=== PATIENT | female | born 1990 | race Caucasian/White ===

== ENCOUNTER 2019-04-22 14:06 | Emergency (ER) | payer SELFPAY ==
[2019-04-22 14:34] LABS: ABS Lymphocytes 1.3 10^3/ul (1.0-4.8); ABS Monocytes 0.3 10^3/ul (0-0.8); Eosinophil % 0.1 %; Hematocrit 43 % (35-47); Hemoglobin 14.6 g/dL (12.0-16.0); Lymphocyte % 22.4 %; Mean Corpuscular HGB Conc 34 g/dL (31-36); Mean Corpuscular Hemoglobin 32 pg (27-31); Mean Corpuscular Volume 95 fL (80-97); Mean Platelet Volume 7.5 fL (7.4-10.4); Nucleated Red Blood Cells % 0.1; Platelet Count 241 10^3/uL (150-450); Red Blood Count 4.53 10^6 /uL (3.70-4.87); Red Cell Distribution Width 13 % (10-15); White Blood Count 5.7 10^3/uL (3.5-10.8)
[2019-04-22 14:45] LABS: Urine Appearance Clear; Urine Bacteria Absent (Absent); Urine Bilirubin Negative (Negative); Urine Blood Negative (Negative); Urine Color Yellow; Urine Glucose Negative (Negative); Urine Ketones Negative (Negative); Urine Nitrite Negative (Negative); Urine Protein 1+(30 mg/dL) (Negative); Urine Red Blood Cell Trace(0-2/hpf) (Absent); Urine Specific Gravity 1.014 (1.010-1.030); Urine Squamous Epithelial Cell Present (Absent); Urine Urobilinogen Negative (Negative); Urine White Blood Cell Trace(0-5/hpf) (Absent)
[2019-04-22 14:56] LABS: Albumin 4.4 g/dL (3.2-5.2); Albumin/Globulin Ratio 1.5 (1-3); BUN/Creatinine Ratio 14.9 (8-20); Calcium 9.5 mg/dL (8.6-10.3); EGFR African American 113.1 (>60); EGFR Non-African American 93.5 (>60); Globulin 2.9 g/dL (2-4); Potassium 3.7 mmol/L (3.5-5.0); Total Bilirubin 0.5 mg/dL (0.2-1.0); Total Protein 7.3 g/dL (6.4-8.9)
--- NOTE | 2019-04-22 16:21 | ED ---
Back Pain - HPI Summary HPI Summary: Pt is a 28 y/o F presenting to the ED with a chief complaint of back pain. Pt states she woke up this morning and began urinating very frequently with clear urine. She then developed some pain in what she thought were her kidneys, but is actually her bilateral upper back. She also reports weakness, decreased appetite, and a headache that she treats not having caffeine today. She denies hematuria, dysuria, vaginal discharge, vaginal bleeding, burning with urination , malodorous urine, fever, nausea, vomiting, diarrhea, or abdominal pain. She has hx of opioid abuse, so when she googled her symptoms she was worried it could be kidney failure. - History of Current Complaint Chief Complaint: EDFlankPain Stated Complaint: POSS KIDNEY FAILURE PER PT Time Seen by Provider: 04/22/19 15:34 Hx Obtained From: Patient Onset/Duration: Gradual Onset, Lasting Hours, Still Present Onset/Duration: Started Hours Ago, Still Present Timing: Constant, Lasting Hours Back Pain Location: Is Diffuse - mid-thoracic back Severity Initially: Mild Severity Currently: None Pain Intensity: 0 Pain Scale Used: 0-10 Numeric Aggravating Symptom(s): Nothing Alleviating Symptom(s): Nothing Associated Signs And Symptoms: Positive: Weakness. Negative: Fever, Abdominal Pain - Allergies/Home Medications Allergies/Adverse Reactions: Allergies Allergy/AdvReac Type Severity Reaction Status Date / Time No Known Allergies Allergy Verified 04/22/19 14:11 Home Medications: Home Medications Kratom And Kava 2 cap PO BID 04/22/19 [History Confirmed 04/22/19] PMH/Surg Hx/FS Hx/Imm Hx Previously Healthy: Yes Endocrine/Hematology History: Denies: Hx Diabetes Cardiovascular History: Denies: Hx Hypertension Infectious Disease History: No Infectious Disease History: Denies: Traveled Outside the [place] in Last 30 Days - Family History Known Family History: Negative: Diabetes - Social History Alcohol Use: None Alcohol Amount: pt states quitting last year Hx Substance Use: Yes Substance Use Type: Reports: Prescribed - opioids, Other Substance Use Comment - Amount & Last Used: kratom, kava, phenibut Hx Tobacco Use: No Smoking Status (MU): Never Smoked Tobacco Review of Systems Positive: Other - dec. appetite, sensitive to sound. Negative: Fever Negative: Abdominal Pain, Vomiting, Nausea Positive: frequency. Negative: burning, dysuria, discharge, hematuria, pain, other - odor Positive: Myalgia - upper back pain Positive: Headache, Weakness All Other Systems Reviewed And Are Negative: Yes Physical Exam - Summary Physical Exam Summary: Constitutional: Well-developed, Well-nourished, Alert. (-) Distressed Skin: Warm, Dry HENT: Normocephalic; Atraumatic Eyes: Conjunctiva normal Neck: Musculoskeletal ROM normal neck. (-) JVD, (-) Stridor, (-) Nuchal rigidity Cardio: Rhythm regular, rate normal, Heart sounds normal; Intact distal pulses; Radial pulses are 2+ and symmetric. (-) Murmur Pulmonary/Chest wall: Effort normal. (-) Respiratory distress, (-) Wheezes, (-) Rales Abd: Soft, (-) tenderness, (-) Distension, (-) Guarding, (-) Rebound Musculoskeletal: (-) Edema. Paraspinal thoracic tenderness Lymph: (-) Cervical adenopathy Neuro: Alert, Oriented x3 Psych: Anxious, cooperative Triage Information Reviewed: Yes Vital Signs On Initial Exam: Initial Vitals Temp Pulse Resp BP Pulse Ox 98.1 F 93 18 129/69 97 04/22/19 14:08 04/22/19 14:08 04/22/19 14:08 04/22/19 14:08 04/22/19 14:08 Vital Signs Reviewed: Yes Procedures - Sedation Patient Received Moderate/Deep Sedation with Procedure: No Diagnostics - Vital Signs Vital Signs Temp Pulse Resp BP Pulse Ox 04/22/19 14:08 98.1 F 93 18 129/69 97 - Laboratory Lab Results: Lab Results 04/22/19 04/22/19 04/22/19 Range/Units 14:19 14:21 14:30 WBC 5.7 (3.5-10.8) 10^3/uL RBC 4.53 (3.70-4.87) 10^6 /uL Hgb 14.6 (12.0-16.0) g/dL Hct 43 (35-47) % MCV 95 (80-97) fL MCH 32 H (27-31) pg MCHC 34 (31-36) g/dL RDW 13 (10-15) % Plt Count 241 (150-450) 10^3/uL MPV 7.5 (7.4-10.4) fL Neut % (Auto) 71.1 % Lymph % (Auto) 22.4 % [place] % (Auto) 6.0 % Eos % (Auto) 0.1 % Baso % (Auto) 0.4 % Absolute Neuts (auto) 4.0 (1.5-7.7) 10^3/ul Absolute Lymphs (auto) 1.3 (1.0-4.8) 10^3/ul Absolute Monos (auto) 0.3 (0-0.8) 10^3/ul Absolute Eos (auto) 0.0 (0-0.6) 10^3/ul Absolute Basos (auto) 0.0 (0-0.2) 10^3/ul Absolute Nucleated RBC 0.0 10^3/ul Nucleated RBC % 0.1 Sodium 138 (135-145) mmol/L Potassium 3.7 (3.5-5.0) mmol/L Chloride 103 (101-111) mmol/L Carbon Dioxide 29 (22-32) mmol/L Anion Gap 6 (2-11) mmol/L BUN 11 (6-24) mg/dL Creatinine 0.74 (0.51-0.95) mg/dL Est GFR ( Amer) 113.1 (>60) Est GFR (Non-Af Amer) 93.5 (>60) BUN/Creatinine Ratio 14.9 (8-20) Glucose 93 (70-100) mg/dL Calcium 9.5 (8.6-10.3) mg/dL Total Bilirubin 0.50 (0.2-1.0) mg/dL AST 15 (13-39) U/L ALT 12 (7-52) U/L Alkaline Phosphatase 67 (34-104) U/L Total Protein 7.3 (6.4-8.9) g/dL Albumin 4.4 (3.2-5.2) g/dL Globulin 2.9 (2-4) g/dL Albumin/Globulin Ratio 1.5 (1-3) Urine Color Yellow Urine Appearance Clear Urine pH 6.0 (5-9) Ur Specific [place] 1.014 (1.010-1.030) Urine Protein 1+(30 mg/dl) A (Negative) Urine Ketones Negative (Negative) Urine Blood Negative (Negative) Urine Nitrate Negative (Negative) Urine Bilirubin Negative (Negative) Urine Urobilinogen Negative (Negative) Ur Leukocyte Esterase Negative (Negative) Urine WBC (Auto) Trace(0-5/hpf) (Absent) Urine RBC (Auto) Trace(0-2/hpf) (Absent) Ur Squamous Epith Cells Present A (Absent) Urine Bacteria Absent (Absent) Urine Glucose Negative (Negative) Result Diagrams: 04/22/19 14:21 04/22/19 14:19 Lab Statement: Any lab studies that have been ordered have been reviewed, and results considered in the medical decision making process. Back Pain Course/Dx - Course Course Of Treatment: 28-year-old female presents with urinary frequency and thoracic back pain. - UA without evidence of infection, creatinine normal patient reassured by normal labs. - patient reports musculoskeletal pain to her back, no red flag symptoms, no fevers, no midline tenderness, does have history of opioid use in the past do not suspect osteomyelitis or discitis. - patient given coffee for headache by request, feels better. - Diagnoses Provider Diagnoses: Urinary frequency Discharge ED - Sign-Out/Discharge Documenting (check all that apply): Patient Departure - Discharge Plan Condition: Stable Disposition: HOME Patient Education Materials: Urinary Urgency and Frequency (DC) Referrals: No Primary Care Phys,NOPCP [Primary Care Provider] - Additional Instructions: You were seen in the emergency department for urinary frequency. Your labs didn 't show any evidence of infection, your kidney function is normal. If any studies were not completed at the time of discharge you will be called with the relevant results. Please follow up with your primary care doctor in next 2-3 days and return to emergency department for worsening or concerning symptoms. It was a pleasure taking care of you today. - Billing Disposition and Condition Condition: STABLE Disposition: Home - Attestation Statements Document Initiated by Nelsonibe: Yes Documenting Scribe: Devika Malik Provider For Whom Vinicio is Documenting (Include Credential): Subha Stevens MD. Scribe Attestation: Devika Her, scribed for Subha Stevens MD. on 04/22/19 at 2143. Scribe Documentation Reviewed: Yes Provider Attestation: The documentation as recorded by the Devika fishman accurately reflects the service I personally performed and the decisions made by me, Subha Stevens MD. Status of Scribe Document: Viewed
[2019-04-22 16:42] VITALS: BP 130/74
== END 2019-04-22 16:37 | disposition home or self-care (01) ==
LOC: ED 14:06
DX: R35.0 Frequency of micturition (principal)
CPT/HCPCS: 36415; 80053; 81003; 81015; 85025; 87086; 99283